=== PATIENT | female | born 1970 | race Two or more races ===

== ENCOUNTER 2019-02-15 06:58 | Day surgery (SDC) | payer OTHER ==
[~2019-02-15 06:58] MED LIST: CYMBAL PO; GABAPEN PO; GABAPENTIN600 MG PO; LOSARTAN PO; SYNTHROID125 MCG PO
== END 2019-02-15 17:05 | disposition home or self-care (01) ==
LOC: CIR.AMB 06:58
DX: D17.0 Benign lipomatous neoplasm of skin and subcutaneous tissue of head, face and neck (principal)

== ENCOUNTER 2020-02-08 11:02 | Outpatient (CLI) | payer OTHER | END 2020-02-08 11:09 | disposition home or self-care (01) | LOC: RAD 11:02 | DX: M54.2 Cervicalgia (principal); M53.82 Other specified dorsopathies, cervical region; G50.0 Trigeminal neuralgia | CPT/HCPCS: 72141 ==

== ENCOUNTER → 2020-02-13 | Outpatient (CLI) | payer OTHER | END | disposition home or self-care (01) | LOC: MRI 09:15 | PROVIDERS: ATTEND Psychiatry & Neurology Neurology | DX: I63.81 Other cerebral infarction due to occlusion or stenosis of small artery (principal); G50.0 Trigeminal neuralgia | CPT/HCPCS: 70553; A9575 ==

== ENCOUNTER 2020-06-26 06:32 | Outpatient (CLI) | payer OTHER | END 2020-06-26 06:47 | disposition home or self-care (01) | LOC: LAB 06:32 | PROVIDERS: ATTEND General Practice | DX: D50.8 Other iron deficiency anemias (principal); Z12.11 Encounter for screening for malignant neoplasm of colon; E03.8 Other specified hypothyroidism; E11.69 Type 2 diabetes mellitus with other specified complication; R10.84 Generalized abdominal pain; E78.49 Other hyperlipidemia; B34.8 Other viral infections of unspecified site; N39.0 Urinary tract infection, site not specified; E53.8 Deficiency of other specified B group vitamins ==

== ENCOUNTER 2020-07-17 09:50 | Emergency (ER) | payer OTHER ==
[~2020-07-17] VITALS: Ht 162.6 cm; Wt 99.8 kg
[2020-07-17] MEDS ORDERED: MUCUS-ER MAX1200 MG PO (13:26)
[2020-07-17] MEDS ORDERED: ALL DAY ALLERGY10 M3 PO (13:26)
[2020-07-17] MEDS ORDERED: FLONASE ALLERG9.9 ML NASAL (13:26)
== END 2020-07-17 13:37 | disposition home or self-care (01) ==
LOC: ER 09:50
DX: R09.81 Nasal congestion (principal); B34.9 Viral infection, unspecified; Z03.818 Encounter for observation for suspected exposure to other biological agents ruled out

== ENCOUNTER 2020-11-13 07:11 | Emergency (ER) | payer OTHER ==
[~2020-11-13] VITALS: Ht 162.6 cm; Wt 101.6 kg
[~2020-11-13 07:11] MED LIST changes: +ALL DAY ALLERGY10 M3 PO; +FLONASE ALLERG9.9 ML NASAL; +MUCUS-ER MAX1200 MG PO
[2020-11-13] MEDS ORDERED: TEGRETOL200 MG PO (07:27)
[2020-11-13] MEDS ORDERED: NEURONTIN300 MG (07:28)
== END 2020-11-13 14:01 | disposition home or self-care (01) ==
LOC: ER 07:11
DX: R43.8 Other disturbances of smell and taste (principal); R51.9 Headache, unspecified; Z20.822 Contact with and (suspected) exposure to COVID-19

== ENCOUNTER 2020-11-26 14:01 | Outpatient (CLI) | payer OTHER ==
[~2020-11-26 14:01] MED LIST changes: +NEURONTIN300 MG; +TEGRETOL200 MG PO
== END 2020-11-26 14:29 | disposition home or self-care (01) ==
LOC: MAMO-SONO 14:01
PROVIDERS: ATTEND General Practice
DX: N64.59 Other signs and symptoms in breast (principal); Z12.31 Encounter for screening mammogram for malignant neoplasm of breast

== ENCOUNTER 2020-12-02 06:29 | Outpatient (CLI) | payer OTHER | END 2020-12-02 06:33 | disposition home or self-care (01) | LOC: LAB 06:29 | PROVIDERS: ATTEND General Practice | DX: E03.8 Other specified hypothyroidism (principal); Z12.11 Encounter for screening for malignant neoplasm of colon; E55.9 Vitamin D deficiency, unspecified; E78.2 Mixed hyperlipidemia; E11.69 Type 2 diabetes mellitus with other specified complication ==